=== PATIENT | male | born 1980 | race Caucasian/White ===

== ENCOUNTER → 2017-02-07 | Outpatient (CLI) | payer OTHER ==
[~2017-02-07] MED LIST: ATOR-22 PO; BACL IT; CEPH500C2 PO; CHOL20007 PO; DOCUENE RE; DTR5 PO; FIBER; NITR-5 PO; WARF4TAB8 PO
--- NOTE | 2017-02-07 18:27 | DIAGNOSTIC IMAGING REPORT ---
THORACOLUMBAR SPINE 2 VIEWS CLINICAL HISTORY: Lower extremity paralysis. Intractable spasm. COMPARISON STUDY: No previous studies for comparison. FINDINGS: Incidental note is made of an IVC filter and mid to lower thoracic spine fusion. A few right abdominal calcifications measure up to 1 cm. These are indeterminate. There is chronic deformity of the pelvis as well as old left-sided rib fractures and old post traumatic deformities within the thoracic and lumbar spines. A left lower quadrant pump is noted with intrathecal catheter. Visualized portions of the catheter are intact however the catheter is not visualized in its entirety due to difficulty positioning on this exam and obscuration by the fusion hardware. The exact level which this catheter enters the canal is difficult to determine on this exam. The final image shows the catheter to likely be within the canal however the tip is not well visualized. IMPRESSION: Left lower quadrant pump with intrathecal catheter. Catheter tip not well visualized due to difficulty positioning and obscuration by the thoracic spine fusion hardware. Visualized portions of catheter intact however catheter partially obscured and tip level cannot be determined with certainty on this exam. Electronically signed by: Ed Eid M.D. 02/07/2017 6:26 PM Dictated Date/Time: 02/07/2017 6:19 PM
== END | disposition home or self-care (01) ==
LOC: C.RADBC 15:40
PROVIDERS: ATTEND Physician Assistant
DX: G83.9 Paralytic syndrome, unspecified (principal); Z97.8 Presence of other specified devices

== ENCOUNTER 2018-12-21 10:40 | Inpatient (IN) ==
[2018-12-21] MEDS ORDERED: MAGNESIUM CITRATE 296 ML/BTL PO PRN (12:07)
[2018-12-21] MEDS ORDERED: ONDANSETRON INJ 2 MG/ML 2 ML VIAL IV PRN (12:07)
[2018-12-21] MEDS ORDERED: HYDROCODONE/ACETAMOPHEN 5/325MG TAB PO PRN (12:07)
[2018-12-21] MEDS ORDERED: ACETAMINOPHEN 500 MG TAB PO PRN (12:07)
[2018-12-21] MEDS ORDERED: HYDROmorphone INJ 0.5 MG/0.5 ML SYR IV PRN (12:07)
[2018-12-21] MEDS ORDERED: ZOLPIDEM TARTRATE 5 MG TAB PO PRN (12:07)
[2018-12-22] MEDS: DOCUSATE SODIUM 100 MG CAP PO SCH ×4 (03:47→21:05)
[2018-12-22] MEDS ORDERED: PIPERACILL/TAZOBAC CONSULT ACTIVE PRN (04:03)
[2018-12-22] MEDS ORDERED: VANCOMYCIN CONSULT ACTIVE PRN (04:03)
[2018-12-22] MEDS ORDERED: LIDOCAINE/PRILOCAINE 2.5% EA CRM EXT PRN (04:11)
[2018-12-22] MEDS ORDERED: ACETAMINOPHEN 325 MG TAB PO PRN (04:11)
[2018-12-22] MEDS ORDERED: DICLOFENAC SOD 1% GEL 100 GM TUBE EXT PRN (04:11)
--- NOTE | 2018-12-22 04:20 | Progress Note ---
Date of Service December 22, [address] Carrington noted that the patient was on track to be transferred from outside hospital roughly around 4 AM for further management of an infected baclofen pump site. She noted that all of the patient's orders were presently in and that she would complete the patient's H&P first thing this morning on starting her shift. There was some residual question on whether the patient still needed to have his antibiotics ordered. Saw patient at bedside. He is very pleasantly conversational and denies any acute pain. He relates that he was transferred because his pump was placed in this facility. Plan: - On brief review of his transfer medical records, patient has been on vancomycin and Zosyn. Wrote orders for the same here. - Otherwise did not modify the orders that have already been placed in his record. - Transfer H&P pending per Dr. Carrington. Alessandro Etienne, PGY3 Overnight call Results & Data Vital Signs (Past 12 Hours) Vital Signs Temp Pulse Resp BP Pulse Ox 12/22/18 03:23 37.3 C 106 H 18 156/82 H 98
[2018-12-22 04:50] LABS: Basophils # (auto) 0.04 K/uL (0-0.2); Basophils % (auto) 0.4 %; Eosinophils # (auto) 0.23 K/uL (0-0.5); Eosinophils % (auto) 2.1 %; Hematocrit (blood only) 37.6 % (42-52); Hemoglobin 12.9 g/dL (14.0-18.0); Immature Granulocytes # (auto) 0.02 K/uL (0.00-0.02); Immature Granulocytes % (auto) 0.2 %; Lymphocytes # (auto) 2.27 K/uL (1.2-3.4); Lymphocytes % (auto) 20.9 %; Mean Corpuscular Hgb Conc 34.3 g/dL (32-36); Mean Corpuscular Volume 90.4 fL (80-100); Mean Platelet Volume 9.9 fL (7.4-10.4); Monocytes # (auto) 1.07 K/uL (0.11-0.59); Monocytes % (auto) 9.8 %; Neutrophils # (auto) 7.24 K/uL (1.4-6.5); Neutrophils % (auto) 66.6 %; Platelet Count 222 K/uL (130-400); RDW Coefficient of Variation 13.5 % (11.5-14.5); RDW Standard Deviation 45.2 fL (36.4-46.3); Red Blood Count 4.16 M/uL (4.7-6.1); White Blood Count 10.87 K/uL (4.8-10.8)
[2018-12-22] MEDS: LACTATED RINGER'S 1,000 ML IV SCH ×2 (04:54→06:20)
[2018-12-22 05:00] LABS: INR 2.2 (0.9-1.1); Partial Thromboplastin Ratio 1.5; Partial Thromboplastin Time 41.7 Seconds (21.0-31.0); Prothrombin Time 21.7 Seconds (9.0-12.0)
[2018-12-22 05:11] LABS: BUN Creatinine Ratio 7.4 (10-20); Calcium 8.5 mg/dl (8.5-10.1); Creatinine Clr Calc Pharmacy 131.1 ml/min; Est GFR (African American) 127.8; Est GFR (Non-African American) 110.3
[2018-12-22 05:15] LABS: Albumin Globulin Ratio 0.8 (0.9-2); Bilirubin,Total 0.5 mg/dl (0.2-1); Globulin 3.9 gm/dl (2.5-4.0); Total Protein 6.9 gm/dl (6.4-8.2)
[2018-12-22] MEDS: OXYBUTYNIN CHLORIDE 5 MG TAB PO SCH ×2 (06:41→21:05)
[2018-12-22] MEDS: PIPERACILLIN/TAZOBACTAM 3.375 GM in DEXTROSE 5% 100 ML IV SCH (06:42)
[2018-12-22] MEDS ORDERED: SOD PHOSPHATE/SOD BIPHOSPHATE ENEMA 132 ML BTL PR PRN (06:53)
[2018-12-22] MEDS ORDERED: VANCOMYCIN HCL 1,250 MG in SODIUM CHLORIDE 0.9% 500 ML IV SCH (08:00)
[2018-12-22] MEDS ORDERED: SODIUM CHLORIDE 0.9% 250 ML IV PRN (08:25)
[2018-12-22] MEDS ORDERED: PHYTONADIONE 5 MG in SODIUM CHLORIDE 0.9% 50 ML IV STA (08:28)
[2018-12-22] MEDS ORDERED: PHYTONADIONE 5 MG TAB PO STA (08:36)
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
[2018-12-22] MEDS: VANCOMYCIN HCL 1,250 MG in SODIUM CHLORIDE 0.9% 250 ML IV SCH (09:07)
[2018-12-22] MEDS: LOSARTAN POTASSIUM 25 MG TAB PO SCH (09:08)
[2018-12-22] MEDS: ATORVASTATIN 20 MG TAB PO SCH (09:08)
[2018-12-22] MEDS: CYANOCOBALAMIN 500 MCG TABLET (VITAMIN B-12) PO SCH (09:08)
[2018-12-22] MEDS: CHOLECALCIFEROL 1,000 UNITS TAB PO SCH (09:08)
[2018-12-22] MEDS: CALCIUM POLYCARBOPHIL 625MG TAB PO SCH (09:09)
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
[2018-12-22] MEDS ORDERED: MIDAZOLAM HCL 1 MG/ML 2ML VIAL ONE (11:27)
[2018-12-22] MEDS ORDERED: fentaNYL citrate 100 MCG/2 ML VIAL ONE ×2 (11:27→14:12)
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
[2018-12-22] MEDS ORDERED: IOPAMIDOL INJ 61% 15 ML VIAL ONE (11:43)
[2018-12-22] MEDS ORDERED: LIDOCAINE/EPINE 2% 1:100,000 20ML ONE (11:43)
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
[2018-12-22] MEDS ORDERED: BACITRACIN INJ 50,000 UNIT VIAL ONE (13:48)
[2018-12-22 14:18] LABS: INR 1.6 (0.9-1.1); Prothrombin Time 16.3 Seconds (9.0-12.0)
--- NOTE | 2018-12-22 15:24 | Pharmacy Report ---
Pharmacy Abx Initial Consult - Date of Service December 22, 2018 - Pharmacy Dosing Scope Date of Consult: 12/22/18 Consultation requested by: Dr. Mclaughlin Pharmacy is consulted to initiate vancomycin IV dosing therapy, order appropriate labs and adjust drug dose/frequency. - Subjective The patient is a 38 year old M admitted on 12/22/18 03:09 with infected baclofen pump site. He is a direct transfer from [facility]. - Objective Height: 5 ft 9 in Weight: 93.3 kg Vital Signs (Past 12hrs): Vital Signs Temp Pulse Pulse Resp BP BP Pulse Ox 12/22/18 13:28 36.6 C 89 18 130/71 97 12/22/18 13:21 36.6 C 89 18 128/78 97 12/22/18 12:58 36.7 C 82 18 122/70 99 12/22/18 12:31 36.8 C 67 18 111/69 12/22/18 12:07 36.8 C 71 18 119/71 98 12/22/18 11:47 36.7 C 91 H 18 122/68 97 12/22/18 11:42 36.8 C 71 18 119/71 98 12/22/18 11:15 37 C 94 H 19 112/70 12/22/18 10:45 36.7 C 94 H 18 123/65 96 12/22/18 10:30 36.7 C 64 18 111/72 95 12/22/18 10:15 36.5 C 73 18 120/79 97 12/22/18 08:22 37.2 C 84 18 107/67 96 12/22/18 03:23 37.3 C 106 H 18 156/82 H 98 Lab Results (24hrs): Laboratory Tests (24 Hours) 12/22/18 12/22/18 12/22/18 06:33 04:39 04:39 WBC 10.87 H Neut # (Auto) 7.24 H Creatinine 0.87 Est Cr Clr Drug Dosing 131.1 Random Vancomycin 12.2 - Risk Factors for Resistance * Antimicrobial use within the last 90 days (keflex) - Assessment & Plan Assessment 38 year old M admitted with an infected baclofen pump. Was receiving vancomycin and Zosyn at [facility]. Vancomycin was 1250 mg IV [id number]; trough on 12/21 was 11.8. This was continued. Last dose prior to transfer was 12/21 @2300. Plan vancomycin/Zosyn for treatment of infected pump site. Vancomycin IV * Estimated PK Parameters (patient specific): Vd 0.65 L/kg, Froylan 0.104 hr-1, t1/2 6.7 hr (this reflects patient specific pharmacokinetics. * Maintenance dose: 1250 mg IV (13.4 mg/kg) every 8 hours --> increased * Goal trough level for infected surgical site : 15 to 20 mcg/mL * Trough level ordered for 12/23/18 Piperacillin/tazobactam * 3.375 g bolus administered over 30 minutes, then 3.375 g IV extended infusion every 8 hours for CrCl greater than 20 mL/min Pharmacy will continue to follow and will adjust dose/frequency as necessary. Thank you.
[2018-12-22] MEDS ORDERED: SURGICEL ABSORB HEMOSTAT 2IN X 14IN TOP ONE (15:27)
[2018-12-22] MEDS ORDERED: PROPOFOL IV EMULSION 10 MG/ML 20 ML VIAL IV ONE (15:33)
[2018-12-22] MEDS ORDERED: GLYCOPYRROLATE 0.2 MG/ML VIAL ONE (15:33)
[2018-12-22] MEDS ORDERED: LIDOCAINE HCL 2% 2 ML VIAL/AMP(20MG/ML) INFIL ONE (15:33)
[2018-12-22] MEDS ORDERED: ONDANSETRON INJ 2 MG/ML 2 ML VIAL ONE (15:33)
[2018-12-22] MEDS ORDERED: NEOSTIGMINE METHYLSULFATE 5 MG/5 ML SYR ONE (15:33)
[2018-12-22] MEDS ORDERED: ePHEDrine sulfate 50 MG/ML SYR ONE (15:33)
[2018-12-22] MEDS ORDERED: ROCURONIUM BROMIDE 10 MG/ML 5 ML VIAL ONE (15:33)
[2018-12-22] MEDS ORDERED: PHENYLEPHRINE 100MCG/ML 5ML SYR ONE (15:45)
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
[2018-12-22] MEDS ORDERED: ePHEDrine sulfate 50 MG/ML AMP IV PRN (17:59)
[2018-12-22] MEDS ORDERED: ATROPINE SULFATE 0.1 MG/ML 10ML SYR IV PRN (17:59)
--- NOTE | 2018-12-22 17:59 | Anesthesiology Progress Note ---
Date of Service December 22, 2018 Anesthesia Post Procedure Vital Signs Vital Signs: Temp Pulse Pulse Pulse Resp BP BP 12/22/18 17:51 36.6 C 12/22/18 17:40 36.6 C 100 H 18 108/58 L 12/22/18 17:30 100 H 18 102/56 L 12/22/18 17:20 102 H 16 90/62 L 12/22/18 17:16 99 H 13 90/50 L 12/22/18 17:15 104 H 13 12/22/18 17:11 100 H 12 12/22/18 17:10 36.9 C 105 H 14 94/53 L 12/22/18 17:06 109 H 12 12/22/18 17:05 111 H 14 88/56 L 12/22/18 17:01 93 H 13 12/22/18 17:00 103 H 14 97/52 L 12/22/18 16:56 105 H 16 12/22/18 16:55 103 H 15 88/63 L 12/22/18 16:50 115 H 14 93/56 L 12/22/18 16:46 110 H 14 12/22/18 16:45 99 H 14 97/58 L 12/22/18 16:41 103 H 14 12/22/18 16:40 118 H 14 89/56 L 12/22/18 16:36 118 H 22 12/22/18 16:35 115 H 18 97/56 L 12/22/18 16:33 122 H 21 12/22/18 16:32 37.0 C 121 H 121 H 13 91/56 L 12/22/18 13:28 36.6 C 89 18 130/71 12/22/18 13:21 36.6 C 89 18 128/78 12/22/18 12:58 36.7 C 82 18 122/70 12/22/18 12:31 36.8 C 67 18 111/69 12/22/18 12:07 36.8 C 71 18 119/71 12/22/18 11:47 36.7 C 91 H 18 122/68 12/22/18 11:42 36.8 C 71 18 119/71 12/22/18 11:15 37 C 94 H 19 112/70 12/22/18 10:45 36.7 C 94 H 18 123/65 12/22/18 10:30 36.7 C 64 18 111/72 12/22/18 10:15 36.5 C 73 18 120/79 12/22/18 08:22 37.2 C 84 18 107/67 12/22/18 03:23 37.3 C 106 H 18 156/82 H BP Pulse Ox 12/22/18 17:51 12/22/18 17:40 96 12/22/18 17:30 96 12/22/18 17:20 100 12/22/18 17:16 100 12/22/18 17:15 12/22/18 17:11 100 12/22/18 17:10 100 12/22/18 17:06 100 12/22/18 17:05 99 12/22/18 17:01 100 12/22/18 17:00 12/22/18 16:56 100 12/22/18 16:55 100 12/22/18 16:50 100 12/22/18 16:46 100 12/22/18 16:45 100 12/22/18 16:41 100 12/22/18 16:40 100 12/22/18 16:36 100 12/22/18 16:35 100 12/22/18 16:33 100 12/22/18 16:32 91/56 L 100 12/22/18 13:28 97 12/22/18 13:21 97 12/22/18 12:58 99 12/22/18 12:31 12/22/18 12:07 98 12/22/18 11:47 97 12/22/18 11:42 98 12/22/18 11:15 12/22/18 10:45 96 12/22/18 10:30 95 12/22/18 10:15 97 12/22/18 08:22 96 12/22/18 03:23 98 Pain Intensity Abdomen: Pain Intensity: 0 Transfer of Care Handoff Completed per policy Notes Mental Status: alert / awake / arousable and participated in evaluation Patient Amnestic to Procedure: Yes Nausea / Vomiting: adequately controlled Pain: adequately controlled Airway Patency, RR, SpO2: stable & adequate BP & HR: stable & adequate Hydration State: stable & adequate Anesthetic Complications: no major complications apparent
[2018-12-22] MEDS ORDERED: diazePAM 5 MG TABLET PO PRN (18:23)
[2018-12-22] MEDS ORDERED: BACLOFEN 10 MG TAB PO PRN (18:23)
[2018-12-22] MEDS ORDERED: DiphenhydrAMINE HCL 50 MG/ML VIAL ONE (18:58)
[2018-12-22] MEDS ORDERED: DiphenhydrAMINE HCL 50 MG/ML VIAL IV ONE (19:15)
[2018-12-22] MEDS ORDERED: EPINEPHrine INJ 1 MG/ML AMP IM ONE (19:15)
[2018-12-22] MEDS ORDERED: FAMOTIDINE 20 MG in SYRINGE 3 ML IV ONE (19:15)
[2018-12-22] MEDS ORDERED: DiphenhydrAMINE HCL 50 MG/ML VIAL IV PRN (19:46)
[2018-12-22] MEDS ORDERED: EPINEPHrine 1 MG/ML AMP IM PRN (19:49)
[2018-12-22] MEDS: DANTROLENE SODIUM 25 MG CAP PO SCH (19:52)
[2018-12-22] MEDS ORDERED: FAMOTIDINE 20 MG in SYRINGE 3 ML IV PRN (20:15)
[2018-12-22] MEDS: BACLOFEN 20 MG TAB PO SCH (21:05)
[2018-12-23] MEDS: LACTATED RINGER'S 1,000 ML IV SCH (00:14)
[2018-12-23] MEDS: PIPERACILLIN/TAZOBACTAM 3.375 GM in DEXTROSE 5% 100 ML IV SCH (00:14)
[2018-12-23] MEDS: VANCOMYCIN HCL 1,250 MG in SODIUM CHLORIDE 0.9% 250 ML IV SCH (00:15)
[2018-12-23] MEDS: DAPTOmycin 475 MG in SYRINGE 0 ML IV SCH ×2 (00:28→23:53)
[2018-12-23 06:44] LABS: Basophils # (auto) 0.01 K/uL (0-0.2); Basophils % (auto) 0.1 %; Hemoglobin 12.3 g/dL (14.0-18.0); Immature Granulocytes # (auto) 0.03 K/uL (0.00-0.02); Immature Granulocytes % (auto) 0.4 %; Lymphocytes % (auto) 16.1 %; Mean Corpuscular Hgb Conc 34.2 g/dL (32-36); Mean Corpuscular Volume 90.5 fL (80-100); Mean Platelet Volume 9.4 fL (7.4-10.4); Monocytes # (auto) 0.49 K/uL (0.11-0.59); Monocytes % (auto) 6.6 %; Neutrophils # (auto) 5.73 K/uL (1.4-6.5); Neutrophils % (auto) 76.8 %; Platelet Count 253 K/uL (130-400); RDW Coefficient of Variation 13.5 % (11.5-14.5); RDW Standard Deviation 45.1 fL (36.4-46.3); Red Blood Count 3.98 M/uL (4.7-6.1); White Blood Count 7.46 K/uL (4.8-10.8)
[2018-12-23 06:53] LABS: INR 1.1 (0.9-1.1); Prothrombin Time 11.4 Seconds (9.0-12.0)
[2018-12-23 07:22] LABS: Alanine Aminotransferase 20 U/L (12-78); Albumin Level 2.9 gm/dl (3.4-5.0); Aspartate Aminotransferase 7 U/L (15-37); BUN Creatinine Ratio 7.2 (10-20); Bilirubin Direct < 0.1 mg/dl (0-0.2); Blood Urea Nitrogen 9 mg/dl (7-18); Calcium 8.6 mg/dl (8.5-10.1); Carbon Dioxide 32 mmol/L (21-32); Chloride 107 mmol/L (98-107); Est GFR (African American) 90.8; Est GFR (Non-African American) 78.4; Glucose 152 mg/dl (70-99); Potassium 4.1 mmol/L (3.5-5.1); Sodium 142 mmol/L (136-145)
[2018-12-23 07:25] LABS: Albumin Globulin Ratio 0.8 (0.9-2); Alkaline Phosphatase 67 U/L (45-117); Bilirubin,Total 0.7 mg/dl (0.2-1); Globulin 3.8 gm/dl (2.5-4.0); Total Protein 6.7 gm/dl (6.4-8.2)
[2018-12-23] MEDS: ATORVASTATIN 20 MG TAB PO SCH (08:14)
[2018-12-23] MEDS: CHOLECALCIFEROL 1,000 UNITS TAB PO SCH (08:14)
[2018-12-23] MEDS: DANTROLENE SODIUM 25 MG CAP PO SCH (08:15)
[2018-12-23] MEDS: LOSARTAN POTASSIUM 25 MG TAB PO SCH (08:15)
[2018-12-23] MEDS: OXYBUTYNIN CHLORIDE 5 MG TAB PO SCH ×2 (08:15→20:47)
[2018-12-23] MEDS: DOCUSATE SODIUM 100 MG CAP PO SCH ×2 (08:15→20:46)
[2018-12-23] MEDS: BACLOFEN 20 MG TAB PO SCH ×3 (08:15→20:47)
[2018-12-23] MEDS: CYANOCOBALAMIN 500 MCG TABLET (VITAMIN B-12) PO SCH (08:15)
[2018-12-23] MEDS: CALCIUM POLYCARBOPHIL 625MG TAB PO SCH (08:15)
--- NOTE | 2018-12-23 08:25 | Pain Management Progress Note ---
Date of Service December 23, 2018 Assessment & Plan (1) Infected wound: (2) Presence of intrathecal baclofen pump: (3) Chronic anticoagulation: (4) Traumatic brain injury: (5) Spinal cord injury at T7-T12 level: (6) Muscle spasticity: (7) Heterotopic ossification of bone: (8) Neurogenic bladder: (9) Paraparesis of both lower limbs: 1. Patient was admitted for surgical removal of intrathecal pump which was completed on 12/22/2018. 2. He has been doing well with acceptable spasm control on oral baclofen 20 mg p.o. 3 times daily and dantrolene 25 mg p.o. every morning. No additional PRN baclofen or Valium was required. 3. Appreciate wound, infectious disease and hospitalist assistance. 4. Anticipate discharge at the earliest on Monday 12/25 but will require social research assistant wound and infectious disease coordination. Subjective 38-year-old male postop day 1 status post explantation of intrathecal baclofen pump. He had rash noted with periorbital edema suggesting a possible allergic reaction noted after arriving to the second floor and received Benadryl Pepcid and IM epinephrine. This resolved his symptoms and has had not had recurrence. Otherwise he had a uneventful evening and slept well. He is straight cathing as previous without concern. He notes he has had acceptable spasm control since removal of intrathecal pump and has not noticed an increase in spasms since removal of the intrathecal pump. He has not had any side effects with oral baclofen. Pain is well controlled, stating his primary source of pain is his chronic ongoing left foot neuropathic type pain. He offers no other complaints.No fevers overnight, no chills. Pain Assessment Pain Assessment [facility] Combined Pain Scale: 1-Unpleasant Sensation - Occaisional uncomfortable feeling Physical Exam Physical Exam: Constitutional: Well-developed, well-nourished, healthy- appearing, overweight male Psych: Awake, alert, and oriented 3 with normal affect and mood. Recent memory appears grossly intact. Resting comfortably in bed with no acute distress Eyes: Pupils are equally round and reactive to light with normal size pupils, eyelids appear normal. No periorbital edema is noted on today's examination Ear, nose, mouth, and throat: Moist nasal and oral membranes, lips and tongues appear normal, no external ear abnormalities are noted Neck: The trachea is midline without deviation and no thyromegaly is noted Respiratory: Normal respiratory effort without distress, no audible wheezes or rhonchi CV: Normal S1 and S2 Chest: No rashes noted GI/abdomen: Non-tender without guarding, wound VAC in place in left lower quadrant with 35 mL drainage since placement. There is less erythema and streaking around the wound as compared to pre-OR Musculoskeletal: Head is normocephalic and atraumatic, gait was not observed Thoracic: Kyphotic curve: Decreased with evidence of prior posterior fusion. The dressing over the incision for ligating his intrathecal catheter has scant drainage. Tenderness: Nontender over the axial midline Myofascial spasm: No appreciable spasm. No discrete trigger points noted Lumbar: Minimal spasm noted over bilateral lower extremities worsened with patient movement of his trunk Skin: No rashes, lesions, ulcers noted. Mild induration noted over left lower quadrant Neuro: No nystagmus noted, the tongue is midline, the patient is able to rotate their head bilaterally : Deferred Results Laboratory Review Laboratory results: findings discussed with patient Additional Comments: Laboratory Tests 12/23/18 12/23/18 12/23/18 06:23 06:23 06:23 WBC 7.46 Hgb 12.3 L Hct 36.0 L Plt Count 253 Neut % (Auto) 76.8 INR 1.1 AST 7 L ALT 20 Alkaline Phosphatase 67
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
[2018-12-24 07:07] LABS: Basophils # (auto) 0.03 K/uL (0-0.2); Basophils % (auto) 0.3 %; Eosinophils # (auto) 0.19 K/uL (0-0.5); Eosinophils % (auto) 2.1 %; Hematocrit (blood only) 36.7 % (42-52); Immature Granulocytes # (auto) 0.05 K/uL (0.00-0.02); Immature Granulocytes % (auto) 0.6 %; Lymphocytes # (auto) 2.63 K/uL (1.2-3.4); Mean Corpuscular Hgb Conc 32.7 g/dL (32-36); Mean Corpuscular Volume 93.1 fL (80-100); Mean Platelet Volume 9.8 fL (7.4-10.4); Monocytes # (auto) 0.96 K/uL (0.11-0.59); Monocytes % (auto) 10.6 %; Neutrophils # (auto) 5.22 K/uL (1.4-6.5); Neutrophils % (auto) 57.4 %; Platelet Count 253 K/uL (130-400); RDW Coefficient of Variation 13.8 % (11.5-14.5); RDW Standard Deviation 47.1 fL (36.4-46.3); Red Blood Count 3.94 M/uL (4.7-6.1); White Blood Count 9.08 K/uL (4.8-10.8)
[2018-12-24 07:15] LABS: Prothrombin Time 10.5 Seconds (9.0-12.0)
--- NOTE | 2018-12-24 07:23 | Infectious Disease Progress Nt ---
Date of Service December 24, 2018 Assessment & Plan (1) Infected wound: Agree with Dapto, follow blood culture results, negative to date. Will likely need prolonged course of IV abx post op, range on 4-6 weeks. Subjective s/p removal of infected intrathecal pump, tolerated well. Intraop cultures now growing MRSA, was transitioned to Dapto, tolerating. wbc 9.0, cmp pending, creat 1 yesterday, currently afebrile. blood cultures remain negative. Results & Data Vital Signs (Past 12 Hours) Vital Signs Temp Pulse Pulse Resp BP BP Pulse Ox 12/24/18 06:59 36.6 C 90 20 135/66 97 12/24/18 03:30 36.6 C 79 20 144/66 H 97 12/24/18 00:50 85 12/23/18 23:00 36.8 C 97 H 20 106/69 95 Laboratory Results Microbiology 12/22/18 Unknown Abdomen Gram Stain - Final 12/22/18 Unknown Abdomen Aerobic and Anaerobic Culture - Preliminary Staph aureus MRSA 12/22/18 18:59 Blood Aerobic Blood Culture - Preliminary No growth in Aerobic bottle after 24 hours. 12/22/18 18:59 Blood Anaerobic Blood Culture - Preliminary No growth in Anaerobic bottle after 24 hours. 12/22/18 18:53 Blood Aerobic Blood Culture - Preliminary No growth in Aerobic bottle after 24 hours. 12/22/18 18:53 Blood Anaerobic Blood Culture - Preliminary No growth in Anaerobic bottle after 24 hours. 12/22/18 Unknown Abdomen Gram Stain - Final 12/22/18 Unknown Abdomen Aerobic and Anaerobic Culture - Preliminary Staphylococcus aureus PG Care Time/CCT Total # of Minutes Spent Total Time Spent with Patient: Total time spent is greater than 50% in coordination of care (as documented) at patient's floor/unit and/or counseling patient:
[2018-12-24] MEDS: DOCUSATE SODIUM 100 MG CAP PO SCH ×2 (07:25→21:45)
[2018-12-24] MEDS: CYANOCOBALAMIN 500 MCG TABLET (VITAMIN B-12) PO SCH (07:28)
[2018-12-24] MEDS: ATORVASTATIN 20 MG TAB PO SCH (07:28)
[2018-12-24] MEDS: LOSARTAN POTASSIUM 25 MG TAB PO SCH (07:28)
[2018-12-24] MEDS: DANTROLENE SODIUM 25 MG CAP PO SCH (07:28)
[2018-12-24] MEDS: CHOLECALCIFEROL 1,000 UNITS TAB PO SCH (07:28)
[2018-12-24] MEDS: CALCIUM POLYCARBOPHIL 625MG TAB PO SCH (07:28)
[2018-12-24] MEDS: BACLOFEN 20 MG TAB PO SCH ×3 (07:28→21:44)
[2018-12-24] MEDS: OXYBUTYNIN CHLORIDE 5 MG TAB PO SCH ×2 (07:28→21:43)
[2018-12-24 07:38] LABS: Albumin Level 2.9 gm/dl (3.4-5.0); BUN Creatinine Ratio 11.8 (10-20); Calcium 8.3 mg/dl (8.5-10.1); Creatinine Clr Calc Pharmacy 104.9 ml/min; Est GFR (African American) 98.9; Est GFR (Non-African American) 85.3; Potassium 3.6 mmol/L (3.5-5.1)
[2018-12-24 07:41] LABS: Albumin Globulin Ratio 0.8 (0.9-2); Bilirubin,Total 0.2 mg/dl (0.2-1); Globulin 3.5 gm/dl (2.5-4.0); Total Protein 6.4 gm/dl (6.4-8.2)
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
[2018-12-24] MEDS: MUPIROCIN 2% OINT 22 GM TUBE INTNAS SCH ×2 (14:33→21:42)
[2018-12-24] MEDS: DAPTOmycin 475 MG in SYRINGE 0 ML IV SCH (23:39)
[2018-12-25 06:29] LABS: Basophils # (auto) 0.03 K/uL (0-0.2); Basophils % (auto) 0.3 %; Eosinophils # (auto) 0.27 K/uL (0-0.5); Eosinophils % (auto) 2.9 %; Hematocrit (blood only) 39.1 % (42-52); Hemoglobin 12.8 g/dL (14.0-18.0); Immature Granulocytes % (auto) 1.1 %; Lymphocytes # (auto) 2.47 K/uL (1.2-3.4); Lymphocytes % (auto) 26.9 %; Mean Corpuscular Hgb Conc 32.7 g/dL (32-36); Mean Corpuscular Volume 93.3 fL (80-100); Mean Platelet Volume 9.4 fL (7.4-10.4); Monocytes # (auto) 1.06 K/uL (0.11-0.59); Monocytes % (auto) 11.5 %; Neutrophils # (auto) 5.25 K/uL (1.4-6.5); Neutrophils % (auto) 57.3 %; Platelet Count 268 K/uL (130-400); RDW Coefficient of Variation 13.5 % (11.5-14.5); RDW Standard Deviation 46.3 fL (36.4-46.3); Red Blood Count 4.19 M/uL (4.7-6.1); White Blood Count 9.18 K/uL (4.8-10.8)
[2018-12-25 06:41] LABS: INR 1.1 (0.9-1.1); Prothrombin Time 11.5 Seconds (9.0-12.0)
[2018-12-25 07:01] LABS: Albumin Level 3.1 gm/dl (3.4-5.0); BUN Creatinine Ratio 11.6 (10-20); Calcium 8.7 mg/dl (8.5-10.1); Creatinine Clr Calc Pharmacy 118.7 ml/min; Est GFR (African American) 113.7; Est GFR (Non-African American) 98.1; Potassium 3.9 mmol/L (3.5-5.1)
[2018-12-25 07:03] LABS: Albumin Globulin Ratio 0.8 (0.9-2); Bilirubin,Total 0.2 mg/dl (0.2-1); Globulin 3.9 gm/dl (2.5-4.0)
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
[2018-12-25] MEDS ORDERED: CALCIUM POLYCARBOPHIL 625MG TAB PO SCH (09:00)
[2018-12-25] MEDS: MUPIROCIN 2% OINT 22 GM TUBE INTNAS SCH ×2 (09:00→21:30)
[2018-12-25] MEDS: OXYBUTYNIN CHLORIDE 5 MG TAB PO SCH ×2 (09:25→21:30)
[2018-12-25] MEDS: CYANOCOBALAMIN 500 MCG TABLET (VITAMIN B-12) PO SCH (09:25)
[2018-12-25] MEDS: ATORVASTATIN 20 MG TAB PO SCH (09:25)
[2018-12-25] MEDS: BACLOFEN 20 MG TAB PO SCH ×3 (09:26→21:29)
[2018-12-25] MEDS: CHOLECALCIFEROL 1,000 UNITS TAB PO SCH (09:26)
[2018-12-25] MEDS: LOSARTAN POTASSIUM 25 MG TAB PO SCH (09:26)
[2018-12-25] MEDS: CALCIUM POLYCARBOPHIL 625MG TAB PO SCH (09:26)
[2018-12-25] MEDS: DOCUSATE SODIUM 100 MG CAP PO SCH ×2 (09:27→21:29)
--- NOTE | 2018-12-25 10:40 | Infectious Disease Progress Nt ---
Date of Service December 25, 2018 Assessment & Plan (1) Infected wound: continue dapto, blood cultures negative. Will likely need prolonged course of IV abx post op, range on 4-6 weeks. continue local wound care. will need weekly cbc, cmp, esr, cpk while on IV abx. Can follow with ID post d/c. Subjective pt seen in followup, doing well. no f/c. no pain but is neuropathic. has vac overa abd wound, significantly improved. OR cultures growing MRSA, blood cultures negative. afebrile on Dapto, wbc 9, creat 0.9. no cough, cp, sob, n/v/d/abd pain. all remaining ros reviewed and are negative Review of Systems Review of Systems: All systems reviewed & are unremarkable except as noted in HPI & below Physical Exam Constitutional: WD/WN, vitals as above Eyes: PERRL, conjunctivae normal, anicteric sclerae ENMT: external ear and nose normal, oropharynx normal Neck: normal visual inspection Respiratory: normal respiratory effort and + respiratory distress Cardiovascular: Rate/Rhythm: regular rate and regular rhythm Gastrointestinal (Abdomen): normal bowel sounds, soft, nontender, no h epatosplenomegaly Musculoskeletal: Head/Neck/Chest: + head abnormal to inspection, normocephalic and head atraumatic Skin: + ulcer, + induration, + wound and + erythema vac in place, significant improvement in erythema, warmth edema. Psychiatric: A+Ox3, euthymic affect Results & Data Vital Signs (Past 12 Hours) Vital Signs Temp Pulse Pulse Pulse Resp BP BP 12/25/18 08:00 36.8 C 55 L 20 105/68 12/25/18 07:00 53 L 12/25/18 04:00 36.9 C 70 18 143/82 H 12/24/18 23:00 36.4 C L 92 H 20 121/86 12/24/18 22:38 81 Pulse Ox 12/25/18 08:00 92 12/25/18 07:00 12/25/18 04:00 96 12/24/18 23:00 98 12/24/18 22:38 Laboratory Results Microbiology 12/22/18 Unknown Abdomen Gram Stain - Final 12/22/18 Unknown Abdomen Aerobic and Anaerobic Culture - Preliminary Staph aureus MRSA 12/22/18 18:59 Blood Aerobic Blood Culture - Preliminary No growth in Aerobic bottle after 48 hours. 12/22/18 18:59 Blood Anaerobic Blood Culture - Preliminary No growth in Anaerobic bottle after 48 hours. 12/22/18 18:53 Blood Aerobic Blood Culture - Preliminary No growth in Aerobic bottle after 48 hours. 12/22/18 18:53 Blood Anaerobic Blood Culture - Preliminary No growth in Anaerobic bottle after 48 hours. 12/22/18 Unknown Abdomen Gram Stain - Final 12/22/18 Unknown Abdomen Aerobic and Anaerobic Culture - Preliminary Staph aureus MRSA PG Care Time/CCT Total # of Minutes Spent Total Time Spent with Patient: Total time spent is greater than 50% in coordination of care (as documented) at patient's floor/unit and/or counseling patient:
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
[2018-12-25] MEDS: WARFARIN SOD 4 MG TAB PO SCH (15:54)
[2018-12-25] MEDS: DAPTOmycin 475 MG in SYRINGE 0 ML IV SCH (23:25)
[2018-12-26 06:13] LABS: Basophils # (auto) 0.04 K/uL (0-0.2); Basophils % (auto) 0.4 %; Eosinophils # (auto) 0.31 K/uL (0-0.5); Eosinophils % (auto) 3.5 %; Hematocrit (blood only) 37.1 % (42-52); Hemoglobin 12.4 g/dL (14.0-18.0); Immature Granulocytes # (auto) 0.16 K/uL (0.00-0.02); Immature Granulocytes % (auto) 1.8 %; Lymphocytes # (auto) 2.24 K/uL (1.2-3.4); Lymphocytes % (auto) 25.1 %; Mean Corpuscular Hgb Conc 33.4 g/dL (32-36); Mean Corpuscular Volume 91.6 fL (80-100); Mean Platelet Volume 9.2 fL (7.4-10.4); Monocytes # (auto) 1.02 K/uL (0.11-0.59); Monocytes % (auto) 11.4 %; Neutrophils # (auto) 5.14 K/uL (1.4-6.5); Neutrophils % (auto) 57.8 %; Platelet Count 292 K/uL (130-400); RDW Coefficient of Variation 13.5 % (11.5-14.5); Red Blood Count 4.05 M/uL (4.7-6.1); White Blood Count 8.91 K/uL (4.8-10.8)
[2018-12-26 06:32] LABS: INR 1.2 (0.9-1.1); Prothrombin Time 12.1 Seconds (9.0-12.0)
[2018-12-26 06:50] LABS: Albumin Level 2.9 gm/dl (3.4-5.0); BUN Creatinine Ratio 14.1 (10-20); Calcium 8.6 mg/dl (8.5-10.1); Creatinine Clr Calc Pharmacy 133.2 ml/min; Est GFR (African American) 128.4; Est GFR (Non-African American) 110.8; Potassium 3.7 mmol/L (3.5-5.1)
[2018-12-26 06:52] LABS: Albumin Globulin Ratio 0.8 (0.9-2); Bilirubin,Total 0.3 mg/dl (0.2-1); Globulin 3.7 gm/dl (2.5-4.0); Total Protein 6.6 gm/dl (6.4-8.2)
[2018-12-26] MEDS: BACLOFEN 20 MG TAB PO SCH ×3 (09:00→20:53)
[2018-12-26] MEDS: CHOLECALCIFEROL 1,000 UNITS TAB PO SCH (09:02)
[2018-12-26] MEDS: ATORVASTATIN 20 MG TAB PO SCH (09:02)
[2018-12-26] MEDS: CYANOCOBALAMIN 500 MCG TABLET (VITAMIN B-12) PO SCH (09:02)
[2018-12-26] MEDS: OXYBUTYNIN CHLORIDE 5 MG TAB PO SCH ×2 (09:02→20:53)
[2018-12-26] MEDS: CALCIUM POLYCARBOPHIL 625MG TAB PO SCH (09:03)
[2018-12-26] MEDS: LOSARTAN POTASSIUM 25 MG TAB PO SCH (09:03)
[2018-12-26] MEDS: MUPIROCIN 2% OINT 22 GM TUBE INTNAS SCH ×2 (09:04→20:53)
[2018-12-26] MEDS: DOCUSATE SODIUM 100 MG CAP PO SCH ×2 (09:04→20:52)
--- NOTE | 2018-12-26 11:19 | Pain Management Progress Note ---
Date of Service December 26, 2018 Assessment & Plan (1) Surgical wound present: 1. POD #4 s/p surgical removal of intrathecal pump doing well with fair spasm control on oral baclofen 20 mg p.o. 3 times daily and d/c of dantrolene. Will increase baclofen to 20mg po q6. No additional PRN baclofen or Valium was required. Dantrolene on hold. Use PRN baclofen to cover spasm volume and can resume dantrolene if needed. Pt already has PO baclofen sent to his home pharmacy yesterday. 2. Appreciate wound, infectious disease and hospitalist assistance. 3. Pt requests ortho consult as outpt for heterotopic ossification BL hips. Will co-ordinate for outpt referral (placed yesterday through my office) 4. Stable from pain perspective to d/c once IV ABX and [place] wound clinic set up. Appreciate social work instructor input. 5. Aquacel dressing placed on lumbar spine wound today. Can be changed by outpt wound. Pt instructed this AM. (2) Presence of intrathecal pump: (3) Infected wound: (4) Spinal cord injury at T7-T12 level: Subjective 38-year-old male postop day 4 status post explantation of intrathecal baclofen pump. Last 24hr have been afebrile, uneventful, slept well. Spoke with case mgt this AM. Interval changes: VNA in place, awaiting auth for wound vac, awaiting appt at [place] wound clinic (transportation issues). On daptomycin. He continues to note acceptable spasm control since removal of intrathecal pump with baclofen 20mg PO TID, but slight increase in spasm volume after d/c dantrolene. No additional PRN required. Pain is well controlled, stating his primary source of pain continues to be his chronic ongoing left foot neuropathic type pain. He offers no other complaints including fevers or chills. Physical Exam Physical Exam: Constitutional: Well-developed, well-nourished, healthy- appearing, overweight male Psych: Awake, alert, and oriented 3 with normal affect and mood. Recent memory appears grossly intact. Resting comfortably in bed with no acute distress Eyes: Pupils are equally round and reactive to light with normal size pupils, eyelids appear normal. No periorbital edema is noted on today's examination Ear, nose, mouth, and throat: Moist nasal and oral membranes, lips and tongues appear normal, no external ear abnormalities are noted Neck: The trachea is midline without deviation and no thyromegaly is noted Respiratory: Normal respiratory effort without distress, no audible wheezes or rhonchi CV: Normal S1 and S2 Chest: No rashes noted GI/abdomen: Non-tender without guarding, wound VAC in place in left lower quadrant (changed by wound yesterday) Musculoskeletal: Head is normocephalic and atraumatic, gait was not observed Thoracic: Kyphotic curve: Decreased with evidence of prior posterior fusion. Lumbar incision well healing w/o erythema, fluctuance. Dressing changed. Tenderness: Nontender over the axial midline Myofascial spasm: No appreciable spasm. No discrete trigger points noted Lumbar: Minimal spasm noted over bilateral lower extremities Skin: No rashes, lesions, ulcers noted. Mild induration noted over left lower quadrant, improving Neuro: No nystagmus noted, the tongue is midline, the patient is able to rotate their head bilaterally : Deferred
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
[2018-12-26] MEDS: WARFARIN SOD 4 MG TAB PO SCH (15:56)
[2018-12-27] MEDS: BACLOFEN 20 MG TAB PO SCH ×3 (02:34→16:40)
[2018-12-27] MEDS: DAPTOmycin 475 MG in SYRINGE 0 ML IV SCH (02:35)
[2018-12-27 06:12] LABS: Basophils # (auto) 0.05 K/uL (0-0.2); Basophils % (auto) 0.5 %; Eosinophils # (auto) 0.35 K/uL (0-0.5); Eosinophils % (auto) 3.7 %; Hemoglobin 13.3 g/dL (14.0-18.0); Immature Granulocytes # (auto) 0.18 K/uL (0.00-0.02); Immature Granulocytes % (auto) 1.9 %; Lymphocytes # (auto) 2.59 K/uL (1.2-3.4); Lymphocytes % (auto) 27.4 %; Mean Corpuscular Hgb Conc 33.3 g/dL (32-36); Mean Corpuscular Volume 91.5 fL (80-100); Mean Platelet Volume 9.3 fL (7.4-10.4); Monocytes # (auto) 1.04 K/uL (0.11-0.59); Neutrophils # (auto) 5.24 K/uL (1.4-6.5); Neutrophils % (auto) 55.5 %; Platelet Count 293 K/uL (130-400); RDW Coefficient of Variation 13.5 % (11.5-14.5); RDW Standard Deviation 44.7 fL (36.4-46.3); Red Blood Count 4.37 M/uL (4.7-6.1); White Blood Count 9.45 K/uL (4.8-10.8)
[2018-12-27 06:26] LABS: INR 1.3 (0.9-1.1); Prothrombin Time 13.5 Seconds (9.0-12.0)
[2018-12-27 06:43] LABS: Albumin Level 3.2 gm/dl (3.4-5.0); BUN Creatinine Ratio 15.2 (10-20); Calcium 8.7 mg/dl (8.5-10.1); Creatinine Clr Calc Pharmacy 131.8 ml/min; Est GFR (African American) 128.4; Est GFR (Non-African American) 110.8; Potassium 3.6 mmol/L (3.5-5.1)
[2018-12-27 06:46] LABS: Albumin Globulin Ratio 0.8 (0.9-2); Bilirubin,Total 0.3 mg/dl (0.2-1); Globulin 3.9 gm/dl (2.5-4.0); Total Protein 7.1 gm/dl (6.4-8.2)
[2018-12-27] MEDS: OXYBUTYNIN CHLORIDE 5 MG TAB PO SCH (09:00)
[2018-12-27] MEDS: CYANOCOBALAMIN 500 MCG TABLET (VITAMIN B-12) PO SCH (09:00)
[2018-12-27] MEDS: CHOLECALCIFEROL 1,000 UNITS TAB PO SCH (09:00)
[2018-12-27] MEDS: ATORVASTATIN 20 MG TAB PO SCH (09:01)
[2018-12-27] MEDS: CALCIUM POLYCARBOPHIL 625MG TAB PO SCH (09:01)
[2018-12-27] MEDS: DOCUSATE SODIUM 100 MG CAP PO SCH (09:02)
[2018-12-27] MEDS: MUPIROCIN 2% OINT 22 GM TUBE INTNAS SCH (09:03)
--- NOTE | 2018-12-27 09:18 | Pain Management Progress Note ---
Date of Service December 27, 2018 Assessment & Plan (1) Surgical wound present: 1. POD #5 s/p surgical removal of intrathecal pump doing well with fair spasm control on oral baclofen 20 mg p.o. 4 times daily. No additional PRN baclofen or Valium was required. Dantrolene will remain on hold. Use PRN baclofen to cover spasm volume and can resume dantrolene if needed. 2. Appreciate wound, infectious disease and hospitalist assistance. 3. Patient continues to be stable from pain perspective. D/c once IV ABX and [place] wound clinic set up. Appreciate social media marketing specialist input. 4. Aquacel dressing placed on lumbar spine wound yesterday. Can be changed by outpt wound. Pt instructed this AM. Present on Admission?: No (2) Infected wound: Present on Admission?: Yes (3) Spinal cord injury at T7-T12 level: Present on Admission?: Yes Subjective Patient seen and examined at the bedside. He is postoperative day 5 replacement of intrathecal baclofen pump. Patient had a PICC line placed. Baclofen dose was adjusted from 20 mg p.o. 3 times daily to 20 mg every 6 hours yesterday due to slight increase in spasm volume after d/c dantrolene. Patient feels that his spasm is relatively well controlled at this time. He is experiencing some spasm in the trunk which can spread into the lower extremities. No additional PRN antispasmodics have been required. Pain is well controlled, stating his primary source of pain continues to be his chronic ongoing left foot neuropathic type pain. Patient denies fever, chills, chest pain, shortness of breath, abdominal pain, urinary frequency, urinary urgency, hematemesis, hematuria or dysuria. Patient has no further constitutional complaints at this time. Plan of care discussed with Dr. Nataly Watt. Pain Assessment Pain Assessment [facility] Combined Pain Scale: 0 - No Pain Physical Exam Physical Exam: General: Patient sleeping upon entering the room. Speech and thought process appropriate. Mood and affect appropriate. Cognition intact. Head: Normocephalic and atraumatic. ENT: Moist mucous membranes were appreciated. Pupils equal round reactive to light. Neck: Supple without adenopathy. Abdomen: Wound dressing in place in the left lower quadrant with wound VAC in place. He is nontender to palpation. There is minimal erythema surrounding the incisional site. Lower extremity: Patient has some involuntary spasm/shaking noted of the lower extremities intermittently throughout the visit. Thoracolumbar spine: Dressing in place in the thoracolumbar junction without evidence of edema, erythema or skin breakdown. Dressing was not changed on today's examination. Neurologic: Cranial nerves grossly intact.
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
[2018-12-27] MEDS: WARFARIN SOD 4 MG TAB PO SCH (16:40)
[2018-12-27] MEDS ORDERED: LOSARTAN POTASSIUM 25 MG TAB PO SCH (21:00)
== END 2018-12-27 16:15 | disposition home health service (06) | DRG 92 ==
LOC: 3N 12-22 03:09 → PREOBSVTOIN 12-22 15:36 → 2N 12-22 16:07